=== PATIENT | female | born 1955 | race Two or more races ===

== ENCOUNTER → 2016-07-17 | Outpatient (CLI) | payer MEDICAID ==
[~2016-07-17] MED LIST: AMI200T PO; AML5T PO; APIX2.5T PO; Atorvastatin Calcium PO; BUME1TAB26 PO; DOX100T PO; GLIP-115 PO; LEV50T NG
[2016-07-17 11:26] LABS: BUN/Creatinine Ratio 22.4; Calcium 8.7 mg/dL (8.5-10.1); Potassium 4.6 mmol/L (3.5-5.1)
== END | disposition home or self-care (01) ==
LOC: LAB 10:39
PROVIDERS: ATTEND Internal Medicine
DX: I12.9 Hypertensive chronic kidney disease with stage 1 through stage 4 chronic kidney disease, or unspecified chronic kidney disease (principal); E11.22 Type 2 diabetes mellitus with diabetic chronic kidney disease; N18.4 Chronic kidney disease, stage 4 (severe)
CPT/HCPCS: 36415; 80048

== ENCOUNTER 2017-02-12 23:46 | Emergency (ER) | payer MEDICAID ==
[~2017-02-12] VITALS: Ht 157.5 cm; Wt 90.8 kg
[~2017-02-12 23:46] MED LIST changes: +ALBUAER3 IN; -AML5T PO; -BUME1TAB26 PO; -DOX100T PO; +FURO40TA4 PO; +LEVO250T45 PO; +MET25T PO; +PANT40T PO
[2017-02-13 00:24] LABS: Basophils # (auto) 0.1 uL; Eosinophils # (auto) 0.9 uL; Hemoglobin 9.9 g/dL (12.2-16.2); Monocytes # (auto) 0.7 uL; Neutrophils # (auto) 5.3 uL; White Blood Cell 8.7 10^3/uL (4.4-10.8)
[2017-02-13 00:25] LABS: Basophils % (auto) 1.2 % (0.0-2.0); Lymphocytes # (auto) 1.8 uL; Lymphocytes % (auto) 20.3 % (10.0-50.0); Mean Corpuscular Hemoglobin 27.9 pg (28.0-32.0); Mean Corpuscular Volume 84.5 fL (80.0-100.0); Mean Platelet Volume 7.3 fL (6.9-10.8); Monocytes % (auto) 8.1 % (0.0-12.0); Neutrophils % (auto) 60.4 % (37.0-80.0); Platelet Count (auto) 475 10^3/uL (140-450); Red Cell Distribution Width 16.6 % (11.8-14.3)
[2017-02-13 00:30] LABS: BUN/Creatinine Ratio 17.6; Calcium 8.9 mg/dL (8.5-10.1); Magnesium 2.5 mg/dL (1.6-2.6); Potassium 4.2 mmol/L (3.5-5.1)
[2017-02-13 00:33] LABS: Bilirubin, Total 0.3 mg/dL (0.2-1.0); Total Protein 8.5 g/dL (6.4-8.2)
[2017-02-13 00:56] LABS: Temperature: 21.5 C (20.0-25.0)
[2017-02-13 01:55] LABS: Urine Bilirubin Negative (Negative); Urine Blood TRACE /uL (Negative); Urine Color Yellow (Yellow); Urine Glucose Normal (Normal); Urine Ketone Negative (Negative); Urine Nitrite Negative (Negative); Urine RBC 1 /hpf (0 - 4); Urine Squamous Epithelial Cell FEW /hpf (<5); Urine Urobilinogen Normal (Negative); Urine pH 6.5 (5.0-8.0)
[2017-02-13 04:00] VITALS: BP 128/73
== END 2017-02-13 04:46 | disposition home or self-care (01) ==
LOC: ER 23:50
DX: E11.649 Type 2 diabetes mellitus with hypoglycemia without coma (principal); E11.22 Type 2 diabetes mellitus with diabetic chronic kidney disease; I48.91 Unspecified atrial fibrillation; I13.0 Hypertensive heart and chronic kidney disease with heart failure and stage 1 through stage 4 chronic kidney disease, or unspecified chronic kidney disease; I50.9 Heart failure, unspecified; N18.3 Chronic kidney disease, stage 3 (moderate); E78.5 Hyperlipidemia, unspecified; E07.9 Disorder of thyroid, unspecified; Z95.0 Presence of cardiac pacemaker; Z45.2 Encounter for adjustment and management of vascular access device; R42 Dizziness and giddiness; W06.XXXA Fall from bed, initial encounter; Y93.89 Activity, other specified; Y99.8 Other external cause status; Y92.89 Other specified places as the place of occurrence of the external cause
CPT/HCPCS: 36415; 70450; 71010; 80053; 81001; 82962; 83735; 83880; 85025; 93005

== ENCOUNTER 2017-02-22 22:03 | Inpatient (IN) | payer MEDICAID ==
[~2017-02-22] VITALS: Ht 157.5 cm; Wt 181.0 kg
[2017-02-23 03:00] LABS: Basophils # (auto) 0 uL; Basophils % (auto) 0.4 % (0.0-2.0); Eosinophils # (auto) 0 uL; Eosinophils % (auto) 0.5 % (0.0-7.0); Hematocrit 26.2 % (36.0-46.0); Hemoglobin 8.6 g/dL (12.2-16.2); Lymphocytes # (auto) 1.4 uL; Lymphocytes % (auto) 16.3 % (10.0-50.0); Mean Corpuscular Hemoglobin 27.3 pg (28.0-32.0); Mean Corpuscular Hgb Conc. 32.8 g/dL (32.0-36.0); Mean Corpuscular Volume 83.4 fL (80.0-100.0); Monocytes % (auto) 12.1 % (0.0-12.0); Neutrophils % (auto) 70.7 % (37.0-80.0); Nucleated Red Blood Cells % 0.1 %; Platelet Count (auto) 371 10^3/uL (140-450); Red Cell Distribution Width 16.9 % (11.8-14.3); White Blood Cell 8.4 10^3/uL (4.4-10.8)
[2017-02-23 03:12] LABS: Albumin 3.9 g/dL (3.4-5.0); Bilirubin, Total 0.4 mg/dL (0.2-1.0); Calcium 7.9 mg/dL (8.5-10.1); Magnesium 3.8 mg/dL (1.6-2.6); Total Protein 8.6 g/dL (6.4-8.2)
[2017-02-23 03:17] LABS: Potassium 6.7 mmol/L (3.5-5.1)
[2017-02-23 03:31] LABS: B-Type Natriuretic Peptide 805.55 pg/mL (0-100)
[2017-02-23 03:45] LABS: Urine Bilirubin Negative (Negative); Urine Blood Negative /uL (Negative); Urine Color Yellow (Yellow); Urine Glucose TRACE mg/dL (Normal); Urine Hyaline Cast FEW /lpf (0 - 2); Urine Ketone Negative (Negative); Urine Mucus FEW (None Seen); Urine Nitrite Negative (Negative); Urine RBC <1 /hpf (0 - 4); Urine Squamous Epithelial Cell FEW /hpf (<5); Urine Urobilinogen Normal (Negative)
[2017-02-23 03:50] LABS: Temperature: 22.4 C (20.0-25.0)
[2017-02-23] MEDS ORDERED: InsuLIN REG 1unit/0.01ml Soln (100units/ml) IV ONE (04:45)
[2017-02-23] MEDS ORDERED: CALCIUM GLUC 4.65meq/50ml D5AE 50 ML IV ONE (04:45)
[2017-02-23] MEDS ORDERED: SODIUM BICARBONATE 8.4 % INJ 50ML VIAL IV ONE (04:45)
[2017-02-23] MEDS ORDERED: DEXTROSE (50%) 50ML SYRG IV ONE (05:45)
[2017-02-23] MEDS ORDERED: FUROSEMIDE 40 MG/4 ML VIAL IV ONE (06:00)
[2017-02-23] MEDS ORDERED: SODIUM POLYSTYRENE SULF 15GM/60ML SUSP PO ONE (06:00)
[2017-02-23] MEDS ORDERED: HYDROcodone-ACET 5/325MG TAB PO PRN (06:30)
[2017-02-23] MEDS ORDERED: TEMAZEPAM 15 MG CAP PO PRN (06:30)
[2017-02-23] MEDS ORDERED: ACETAMINOPHEN 325 MG TAB PO PRN (06:30)
[2017-02-23] MEDS ORDERED: ALBUTEROL SULF 2.5 MG/0.5ML(0.5%) NEB SOLN NEB PRN (06:30)
[2017-02-23] MEDS ORDERED: MORPHINE SULF INJ 2 MG/ML SYRINGE 1ML IV PRN (06:30)
[2017-02-23] MEDS ORDERED: DEXTROSE (50%) 50ML SYRG IV PRN ×2 (06:30→17:15)
[2017-02-23] MEDS ORDERED: NITROGLYCERIN 0.4 MG SL TAB SL PRN (06:30)
[2017-02-23] MEDS: glipiZIDE 5 MG TAB PO SCH ×2 (07:00→17:57)
[2017-02-23] MEDS: LEVOTHYROXINE SODIUM 25 MCG TAB PO SCH (07:29)
[2017-02-23] MEDS: cefTRIAXone 1GM/10ml IVPUSH 10 ML IV SCH (09:12)
[2017-02-23] MEDS ORDERED: SODIUM CHLORIDE 0.9% 1,000 ML IV ONE (09:15)
[2017-02-23 09:46] LABS: BUN/Creatinine Ratio 28.6; Calcium 8.3 mg/dL (8.5-10.1)
[2017-02-23] MEDS: AMIODARONE HCL 200 MG TAB PO SCH (10:00)
[2017-02-23] MEDS: APIXABAN 5 MG TAB PO SCH ×2 (10:00→21:42)
[2017-02-23 10:06] LABS: Potassium 6.8 mmol/L (3.5-5.1)
[2017-02-23] MEDS: METOPROLOL TARTRATE 25 MG TAB PO SCH ×2 (11:20→21:43)
[2017-02-23] MEDS: PANTOPRAZOLE 40 MG TAB PO SCH (11:20)
[2017-02-23] MEDS ORDERED: ACCU-CHEK COMFORT CURVE STRIP VI SCH (12:00)
[2017-02-23] MEDS ORDERED: InsuLIN REG 1unit/0.01ml Soln (100units/ml) SC SCH (12:00)
[2017-02-23 12:59] LABS: BUN/Creatinine Ratio 29.9; Calcium 8.3 mg/dL (8.5-10.1); Potassium 4.6 mmol/L (3.5-5.1)
[2017-02-23 15:32] VITALS: BP 110/58
[2017-02-23 16:30] VITALS: BP 109/55
[2017-02-23 16:43] VITALS: BP 109/55
[2017-02-23] MEDS: ACCU-CHEK COMFORT CURVE STRIP VI SCH ×2 (17:58→21:44)
[2017-02-23] MEDS: InsuLIN REG 1unit/0.01ml Soln (100units/ml) SC SCH ×2 (18:02→21:42)
[2017-02-23 20:00] VITALS: BP 112/55
[2017-02-23 22:00] VITALS: BP 112/55
[2017-02-24 05:00] VITALS: BP 100/46
[2017-02-24 06:18] LABS: Basophils # (auto) 0.1 uL; Basophils % (auto) 0.8 % (0.0-2.0); Eosinophils # (auto) 0.4 uL; Eosinophils % (auto) 6.3 % (0.0-7.0); Hematocrit 26.3 % (36.0-46.0); Hemoglobin 8.8 g/dL (12.2-16.2); Lymphocytes # (auto) 1.6 uL; Lymphocytes % (auto) 22.5 % (10.0-50.0); Mean Corpuscular Hemoglobin 27.7 pg (28.0-32.0); Mean Corpuscular Hgb Conc. 33.3 g/dL (32.0-36.0); Mean Corpuscular Volume 83.3 fL (80.0-100.0); Mean Platelet Volume 8.2 fL (6.9-10.8); Monocytes # (auto) 0.8 uL; Monocytes % (auto) 10.9 % (0.0-12.0); Neutrophils # (auto) 4.1 uL; Neutrophils % (auto) 59.5 % (37.0-80.0); Nucleated Red Blood Cells % 0.4 %; Platelet Count (auto) 326 10^3/uL (140-450); Red Cell Distribution Width 17.2 % (11.8-14.3); White Blood Cell 6.9 10^3/uL (4.4-10.8)
[2017-02-24] MEDS: glipiZIDE 5 MG TAB PO SCH (06:33)
[2017-02-24] MEDS: InsuLIN REG 1unit/0.01ml Soln (100units/ml) SC SCH ×4 (06:34→21:22)
[2017-02-24] MEDS: ACCU-CHEK COMFORT CURVE STRIP VI SCH ×4 (06:34→21:22)
[2017-02-24 06:38] LABS: Albumin 3.2 g/dL (3.4-5.0); BUN/Creatinine Ratio 30.8; Calcium 8.1 mg/dL (8.5-10.1); Potassium 3.8 mmol/L (3.5-5.1)
[2017-02-24 06:41] LABS: Bilirubin, Total 0.2 mg/dL (0.2-1.0); Total Protein 7.4 g/dL (6.4-8.2)
[2017-02-24] MEDS: LEVOTHYROXINE SODIUM 25 MCG TAB PO SCH (06:45)
[2017-02-24 08:00] VITALS: BP 112/48
[2017-02-24 09:00] VITALS: BP 112/48
[2017-02-24] MEDS: cefTRIAXone 1GM/10ml IVPUSH 10 ML IV SCH (10:01)
[2017-02-24] MEDS: METOPROLOL TARTRATE 25 MG TAB PO SCH ×2 (10:01→21:28)
[2017-02-24] MEDS: APIXABAN 5 MG TAB PO SCH ×2 (10:02→21:58)
[2017-02-24] MEDS: PANTOPRAZOLE 40 MG TAB PO SCH (10:07)
[2017-02-24] MEDS: AMIODARONE HCL 200 MG TAB PO SCH (11:15)
[2017-02-24 12:46] VITALS: BP 130/52
[2017-02-24] MEDS ORDERED: SODIUM CHLORIDE 0.9% 1,000 ML IV ONE (13:30)
[2017-02-24 16:46] VITALS: BP 107/49
[2017-02-24 23:17] VITALS: BP 112/59
[2017-02-25 05:33] VITALS: BP 109/59
[2017-02-25] MEDS: InsuLIN REG 1unit/0.01ml Soln (100units/ml) SC SCH (06:10)
[2017-02-25] MEDS: ACCU-CHEK COMFORT CURVE STRIP VI SCH (06:11)
[2017-02-25] MEDS: LEVOTHYROXINE SODIUM 25 MCG TAB PO SCH (06:15)
[2017-02-25 06:22] LABS: Albumin 3.2 g/dL (3.4-5.0); BUN/Creatinine Ratio 31.3; Bilirubin, Total 0.3 mg/dL (0.2-1.0); Calcium 7.5 mg/dL (8.5-10.1); Magnesium 3.5 mg/dL (1.6-2.6); Potassium 4.1 mmol/L (3.5-5.1); Total Protein 7.4 g/dL (6.4-8.2)
[2017-02-25 09:00] VITALS: BP 100/47
[2017-02-25] MEDS ORDERED: FURO20TA PO (10:15)
[2017-02-25] MEDS: cefTRIAXone 1GM/10ml IVPUSH 10 ML IV SCH (10:44)
[2017-02-25] MEDS: METOPROLOL TARTRATE 25 MG TAB PO SCH (10:50)
[2017-02-25] MEDS: APIXABAN 5 MG TAB PO SCH (10:51)
[2017-02-25] MEDS: AMIODARONE HCL 200 MG TAB PO SCH (10:51)
[2017-02-25] MEDS: PANTOPRAZOLE 40 MG TAB PO SCH (10:52)
[2017-02-25 11:09] VITALS: BP 100/47
== END 2017-02-25 15:39 | disposition home or self-care (01) | DRG 420 ==
LOC: ER 22:03 → TELE 22:04 → TELE-CENTR 02-23 15:56 → OVERFLOW 02-24 11:25 → TELE-CENTR 02-24 11:31
PROVIDERS: ADMIT Nurse Practitioner; ATTEND Internal Medicine
DX: E11.65 Type 2 diabetes mellitus with hyperglycemia (principal); N17.0 Acute kidney failure with tubular necrosis; J96.11 Chronic respiratory failure with hypoxia; N18.4 Chronic kidney disease, stage 4 (severe); D68.69 Other thrombophilia; E44.0 Moderate protein-calorie malnutrition; I13.0 Hypertensive heart and chronic kidney disease with heart failure and stage 1 through stage 4 chronic kidney disease, or unspecified chronic kidney disease; I50.32 Chronic diastolic (congestive) heart failure; E11.21 Type 2 diabetes mellitus with diabetic nephropathy; E11.22 Type 2 diabetes mellitus with diabetic chronic kidney disease; I48.0 Paroxysmal atrial fibrillation; E11.649 Type 2 diabetes mellitus with hypoglycemia without coma; I49.5 Sick sinus syndrome; E86.9 Volume depletion, unspecified; I08.3 Combined rheumatic disorders of mitral, aortic and tricuspid valves; E87.5 Hyperkalemia; D63.8 Anemia in other chronic diseases classified elsewhere; E03.9 Hypothyroidism, unspecified; N39.0 Urinary tract infection, site not specified; E83.41 Hypermagnesemia; E78.5 Hyperlipidemia, unspecified; E66.9 Obesity, unspecified; Z68.45 Body mass index [BMI] 70 or greater, adult; Z79.01 Long term (current) use of anticoagulants; Z83.3 Family history of diabetes mellitus; Z95.0 Presence of cardiac pacemaker
CPT/HCPCS: 36415; 71010; 80048; 80053; 81001; 82010; 82570; 82962; 83036; 83735; 83880; 83930; 83935; 84132; 84133; 84156; 84300; 84484; 85025; 87086; 93005; 94761; 96361; 96374; 96375; J0610; J1815

== ENCOUNTER 2020-03-24 21:28 | Emergency (ER) | payer MEDICAID ==
[~2020-03-24] VITALS: Ht 162.6 cm; Wt 104.3 kg
[~2020-03-24 21:28] MED LIST changes: -AMI200T PO; +AMIO200T4 PO; -Atorvastatin Calcium PO; +FURO1TAB33 PO; -FURO40TA4 PO; -GLIP-115 PO; +LEVO250T19 PO; -LEVO250T45 PO
[2020-03-24 21:32] VITALS: BP 0/0
== END 2020-03-24 22:00 ==
LOC: EDBD 21:28 → ER 21:28
DX: I46.9 Cardiac arrest, cause unspecified (principal); E11.22 Type 2 diabetes mellitus with diabetic chronic kidney disease; I13.0 Hypertensive heart and chronic kidney disease with heart failure and stage 1 through stage 4 chronic kidney disease, or unspecified chronic kidney disease; N18.9 Chronic kidney disease, unspecified; I50.89 Other heart failure; E78.5 Hyperlipidemia, unspecified
CPT/HCPCS: 92950